=== PATIENT | female | born 1965 | race Caucasian/White ===

== ENCOUNTER 2022-09-03 16:49 | Emergency (ER) | payer OTHER ==
[~2022-09-03] VITALS: Ht 162.6 cm; Wt 56.7 kg
[2022-09-03 17:40] VITALS: BP 153/74; PULSE 96; RESP 20; TEMP 98; O2SAT 96
[2022-09-03] MEDS ORDERED: KETOROLAC 30 MG/ML VIAL IM ONE (18:25)
[2022-09-03] MEDS ORDERED: PROCHLORPERAZINE 10 MG/2 ML VIAL IM ONE (18:25)
--- NOTE | 2022-09-03 19:59 | NUR ---
PT TO [facility]
[2022-09-03] MEDS ORDERED: NAPR-54 PO (20:55)
[2022-09-03 21:27] VITALS: BP 153/74; PULSE 96; RESP 20; TEMP 98; O2SAT 96
--- NOTE | 2022-09-03 21:27 | NUR ---
Patient discharged with v/s stable. Written and verbal after care instructions given and explained. New rx naproxen. Patient verbalized understanding. Carried with steady gait. All questions addressed prior to discharge. Advised to follow up with PMD.
== END 2022-09-03 21:27 | disposition home or self-care (01) ==
LOC: MED 16:49
DX: R51.9 Headache, unspecified (principal); R09.81 Nasal congestion; R50.9 Fever, unspecified; R09.89 Other specified symptoms and signs involving the circulatory and respiratory systems; I10 Essential (primary) hypertension; Z79.899 Other long term (current) drug therapy
CPT/HCPCS: 70450; 96372; 99285; J0780; J1885